=== PATIENT | female | born 1980 | race Caucasian/White ===

== ENCOUNTER 2016-09-23 15:30 | Emergency (ER) | payer OTHER | END 2016-09-23 16:06 | disposition home or self-care (01) | LOC: FER 15:30 | DX: B37.0 Candidal stomatitis (principal); I10 Essential (primary) hypertension; F17.210 Nicotine dependence, cigarettes, uncomplicated; Z88.1 Allergy status to other antibiotic agents; Z88.5 Allergy status to narcotic agent; Z79.899 Other long term (current) drug therapy | CPT/HCPCS: 99282 ==

== ENCOUNTER 2016-12-12 10:48 | Emergency (ER) | payer SELFPAY | END 2016-12-12 11:13 | disposition CLEPR | LOC: FER 10:48 | DX: Z02.89 Encounter for other administrative examinations (principal); F15.10 Other stimulant abuse, uncomplicated; F17.210 Nicotine dependence, cigarettes, uncomplicated; Z88.1 Allergy status to other antibiotic agents; Z88.5 Allergy status to narcotic agent | CPT/HCPCS: 99283 ==